=== PATIENT | female | born 1965 | race Caucasian/White ===

== ENCOUNTER 2019-12-16 07:08 | Outpatient (CLI) | payer BC, SELFPAY ==
--- NOTE | ~2019-12-16 | MM_ITS ---
EXAMINATION: MM screening [facility] BI w gillian HISTORY: Screening mammogram TECHNIQUE: Craniocaudal and mediolateral oblique 3-D tomosynthesis images were obtained and synthetic 2-D images were generated. CAD analysis was submitted and interpreted. COMPARISON: 11/25/2018, 11/20/2017, 11/25/2016, 11/17/2016 BREAST PARENCHYMAL COMPOSITION: There are scattered areas of fibroglandular density. FINDINGS: There is no evidence of suspicious mass, calcification, or architectural distortion to sugg est malignancy in either breast. There has been no suspicious interval change. IMPRESSION: 1. No mammographic evidence of malignancy. 2. Recommend routine screening mammography in one year. BI-RADS Category 1: Negative Reviewed, dictated and finalized at location A.
== END 2019-12-16 07:09 | disposition home or self-care (01) ==
LOC: ANHIMG 07:12
PROVIDERS: PCP Family Medicine; Visit Provider Obstetrics & Gynecology
DX: Z12.31 Encounter for screening mammogram for malignant neoplasm of breast (principal)
CPT/HCPCS: 77063; 77067

== ENCOUNTER 2020-12-18 07:02 | Outpatient (CLI) | payer OTHER, SELFPAY ==
--- NOTE | ~2020-12-18 | MM_ITS ---
EXAMINATION: MM screening [facility] BI w gillian HISTORY: Screening mammogram TECHNIQUE: Craniocaudal and mediolateral oblique 3-D tomosynthesis images were obtained and synthetic 2-D images were generated. CAD analysis was submitted and interpreted. COMPARISON: 12/16/2019, 11/25/2018, 11/20/2017 BREAST PARENCHYMAL COMPOSITION: There are scattered areas of fibroglandular density. FINDINGS: RIGHT BREAST: There is no evidence of suspicious mass, calcification, or architectural distortion to suggest malignancy. There has been no significant interval change. LEFT BREAST: There is an asymmetry in the middle third of inner breast 6 cm from the nipple on the cr aniocaudal view. IMPRESSION: 1. Left breast asymmetry. 2. Additional mammographic views and possible breast ultrasound are recommended. BI-RADS Category 0: Incomplete: Needs additional imaging evaluation. Reviewed, dictated and finalized at location A. IMPRESSION: 1. Left breast asymmetry. 2. Additional mammographic views and possible breast ultrasound are recommended . BI-RADS Category 0: Incomplete: Needs additional imaging evaluation.
== END 2020-12-18 07:03 | disposition home or self-care (01) ==
LOC: ANHIMG 07:07
PROVIDERS: PCP Nurse Practitioner; Visit Provider Obstetrics & Gynecology
DX: Z12.31 Encounter for screening mammogram for malignant neoplasm of breast (principal); R92.8 Other abnormal and inconclusive findings on diagnostic imaging of breast
CPT/HCPCS: 77063; 77067

== ENCOUNTER 2021-01-16 12:07 | Outpatient (CLI) | payer OTHER, SELFPAY ==
--- NOTE | ~2021-01-16 | MMUS_ITS ---
CORRECTED REPORT Procedure description corrected, gillian added. 01/17/2021 sef EXAMINATION: MM diagnostic [facility] LT w gillian, US breast LT limited HISTORY: Follow-up left breast asymmetry TECHNIQUE: Additional 3-D tomosynthesis images of the left breast were performed and synthetic 2-D images were generated. CAD analysis was submitted and interpreted. High resolution Limited left breast ultrasound was performed. COMPARISON: Comparison to multiple prior studies sequentially, with oldest reviewed study dated 11/17/2016. BREAST PARENCHYMAL COMPOSITION: Breast composed of scattered areas of fibroglandular density. FINDINGS: MAMMOGRAPHIC FINDINGS: There is a persistent focal asymmetry medial aspect of the left breast, middle third. This is not definitely seen on medial lateral or MLO views. ULTRASOUND: Limited left breast ultrasound: Normal heterogeneous echotexture. No focal mass identified. IMPRESSION: 1. Probable benign focal left breast asymmetry, middle third medial aspect of the left breast on CC view. No sonographic correlate. 2. Recommend 6 month follow-up diagnostic left mammogram. BI-RADS category 3, probably benign findings. Reviewed, dictated and finalized at location A. MTDD IMPRESSION: 1. Probable benign focal left breast asymmetry, middle third medial aspect of t he left breast on CC view. No sonographic correlate. 2. Recommend 6 month follow-up diagnostic left mammogram. BI-RADS category 3, probably benign findings.
== END 2021-01-16 12:08 | disposition home or self-care (01) ==
LOC: ANHIMG 12:09
PROVIDERS: PCP Nurse Practitioner; Visit Provider Obstetrics & Gynecology
DX: R92.8 Other abnormal and inconclusive findings on diagnostic imaging of breast (principal)
CPT/HCPCS: 76642; 77061; 77065; G0279

== ENCOUNTER → 2021-07-26 07:42 | Outpatient (CLI) | payer OTHER, SELFPAY ==
--- NOTE | ~2021-07-26 | MMUS_ITS ---
EXAMINATION: MM diagnostic [facility] LT w gillian, US breast LT limited HISTORY: Follow-up left breast mass TECHNIQUE: Additional 3-D tomosynthesis images of the left breast were performed and synthetic 2-D im ages were generated. CAD analysis was submitted and interpreted. High resolution Limited left breast ultrasound was performed. COMPARISON: Comparison to multiple prior studies sequentially, with oldest reviewed study dated 11/20. BREAST PARENCHYMAL COMPOSITION: Breast composed of scattered areas of fibroglandular density FINDINGS: MAMMOGRAPHIC FINDINGS: There is a mass in the upper inner quadrant of the left breast. No suspicious calcifications or archi tectural distortion. ULTRASOUND: Limited left breast ultrasound: At 10:00, 5 cm from the nipple there is a 3 mm cyst corresponding to the mammographic finding. No suspicious masses to suggest malignancy. IMPRESSION: 1. No evidence for malignancy in the left breast. Benign findings. 2. Routine yearly screening mammogram and regular clinical breast examination are recommended. BI-RADS Category 2: Benign finding(s). Reviewed, dictated and finalized at location A. [employer] IMPRESSION: 1. No evidence for malignancy in the left breast. Benign findings. 2. Routine yearly screening mammogram and regular clinical breast examination a re recommended. BI-RADS Category 2: Benign finding(s).
== END ==
PROVIDERS: PCP Nurse Practitioner; Visit Provider Obstetrics & Gynecology
DX: R92.8 Other abnormal and inconclusive findings on diagnostic imaging of breast (principal)
CPT/HCPCS: 76642; 77061; 77065; G0279

== ENCOUNTER 2022-02-25 11:01 | Outpatient (CLI) | payer OTHER, SELFPAY ==
[2022-02-25 12:16] LABS: Hematocrit 42.1 % (37.0-47.0); Hemoglobin 14.4 g/dL (12.0-15.0); Mean Corpuscular HGB Conc 34.2 g/dl (32-36); Mean Corpuscular Hemoglobin 31.8 pg (26-34); Mean Corpuscular Volume 92.9 fl (80-100); Mean Platelet Volume 9.8 fl (7.4-10.4); Platelet Count Result 257 k/mm3 (150-375); Red Blood Count 4.53 M/mm3 (4.2-5.4); Red Cell Distribution Width 11.7 % (11.5-14.5); White Blood Count 7.3 K/mm3 (4.5-10.0)
[2022-02-25 12:34] LABS: CRP 1.2 mg/dL (<1.0)
[2022-02-25 14:26] LABS: Erythrocyte Sedimentation Rate 12 mm/hr (0-20)
[2022-03-04 15:09] LABS: Gliadin AB, IgG <1.0; TTG IGA AB <1.0
== END 2022-02-25 11:02 | disposition home or self-care (01) ==
LOC: ANHLAB 11:03
PROVIDERS: PCP Nurse Practitioner; Visit Provider Nurse Practitioner
DX: R19.7 Diarrhea, unspecified (principal); R10.9 Unspecified abdominal pain
CPT/HCPCS: 36415; 83516; 84443; 85027; 85652; 86140; 86255

== ENCOUNTER 2022-02-28 07:43 | Outpatient (CLI) | payer OTHER, SELFPAY ==
[2022-03-08 10:01] LABS: Calprotectin, Stool 89 mcg/g
== END 2022-02-28 07:44 | disposition home or self-care (01) ==
LOC: ANHLAB 07:44
PROVIDERS: Visit Provider Nurse Practitioner
DX: R10.9 Unspecified abdominal pain (principal); R19.7 Diarrhea, unspecified
CPT/HCPCS: 83993; 87045; 87177; 87209; 87427

== ENCOUNTER → 2022-02-28 16:24 | Outpatient (CLI) | payer OTHER, SELFPAY ==
--- NOTE | ~2022-02-28 | MM_ITS ---
EXAMINATION: MM screening [facility] BI w gillian HISTORY: Screening mammogram TECHNIQUE: Craniocaudal and mediolateral oblique 3-D tomosynthesis images were obtained and synthetic 2-D images were generated. CAD analysis was submitted and interpreted. COMPARISON: July 26, 2021 diagnostic left mammogram and limited left breast ultrasound 01/16/2021 diagnostic left mammogram and limited left breast ultrasound 12/18/2020, 12/16/2019, bilateral screening mammogram examinations BREAST PARENCHYMAL COMPOSITION: There are scattered areas of fibroglandular density. FINDINGS: Stable mild fibroglandular asymmetry. Focal approximately 2.5 x 5 mm asymmetry is noted in the usual the anterior middle thirds of the inne r left breast on craniocaudal view (craniocaudal Tomosynthesis image 57/85). Diagnostic left mammogra m and left breast ultrasound examination are recommended. Otherwise there is no evidence of suspicious mass, calcification, or architectural distortion to sugg est malignancy in either breast. There has been no other suspicious interval change. IMPRESSION: 1. Asymmetric approximately 2 x 5 x 5 mm opacity in inner left breast on craniocaudal view 2. Diagnostic left mammogram and left breast ultrasound examination are recommended. BI-RADS Category 0: Incomplete: Needs additional imaging evaluation. Reviewed, dictated and finalized at location A. IMPRESSION: 1. Asymmetric approximately 2 x 5 x 5 mm opacity in inner left breast on cranio caudal view 2. Diagnostic left mammogram and left breast ultrasound examination are recomme nded. BI-RADS Category 0: Incomplete: Needs additional imaging evaluation.
== END ==
PROVIDERS: PCP Nurse Practitioner; Visit Provider Obstetrics & Gynecology
DX: Z12.31 Encounter for screening mammogram for malignant neoplasm of breast (principal); R92.8 Other abnormal and inconclusive findings on diagnostic imaging of breast
CPT/HCPCS: 77063; 77067

== ENCOUNTER → 2022-03-19 07:29 | Outpatient (CLI) | payer OTHER, SELFPAY ==
--- NOTE | ~2022-03-19 | MMUS_ITS ---
EXAMINATION: MM diagnostic [facility] LT w gillian, US breast LT limited HISTORY: Follow-up left breast asymmetry TECHNIQUE: Additional 3-D tomosynthesis images of the left breast were performed and synthetic 2-D im ages were generated. CAD analysis was submitted and interpreted. High resolution Limited left breast ultrasound was performed. COMPARISON: Comparison to multiple prior studies sequentially, with oldest reviewed study dated 11/25. BREAST PARENCHYMAL COMPOSITION: Breast composed of scattered areas of fibroglandular density FINDINGS: MAMMOGRAPHIC FINDINGS: There is a persistent focal asymmetry medial aspect of the left breast on CC view which is not defini tively seen on medial lateral or MLO views. ULTRASOUND: Limited left breast ultrasound: At 12:00, 2 cm from the nipple there is an oval hypoechoic mass with parallel orientation, no posterior features or internal vascularity measuring 3 mm. At 10:00, 5 cm fr om the nipple, there is a 3 mm minimally complicated cyst, likely corresponding to the mammographic f inding. IMPRESSION: 1. Probable benign left breast masses. 2. Recommend 6 month follow-up diagnostic left mammogram and limited ultrasound BI-RADS category 3, probably benign findings. Reviewed, dictated and finalized at location A. IMPRESSION: 1. Probable benign left breast masses. 2. Recommend 6 month follow-up diagnostic left mammogram and limited ultrasound BI-RADS category 3, probably benign findings.
== END ==
PROVIDERS: PCP Nurse Practitioner; Visit Provider Obstetrics & Gynecology
DX: R92.8 Other abnormal and inconclusive findings on diagnostic imaging of breast (principal); N63.25 Unspecified lump in the left breast, overlapping quadrants
CPT/HCPCS: 76642; 77061; 77065; G0279

== ENCOUNTER 2022-04-11 00:07 | Day surgery (SDC) | payer OTHER, SELFPAY ==
[2022-04-03 13:47] VITALS: BMI 34.4
--- NOTE | 2022-04-10 14:41 | PM.HPGS ---
History of Present Illness History of Present Illness Consent: Risks, benefits, and alternatives have been discussed and questions answered. Patient agrees to proceed with procedure. Chief complaint: abdominal pain, diarrhea; abnormal celiac panel Narrative: Lauren Simmons is a 56 year old female referred for investigation of abdominal pain and diarrhea. Her diarrhea is chronic. She had a cholecystectomy few years ago. She had try taking Questran but it caused bloating and she therefore stopped taking it after 3 days.. She has had testing for celiac disease and a trial of Xifaxan. The celiac test were all negative except for a slight elevation of tTG IgG (6, normal 5 or less) Review of Systems Review of Systems: All systems reviewed & are unremarkable except as noted in HPI and below PMFSH Surgical History Surgical History H/O sinus surgery History of cholecystectomy 2018 Dr. 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 Spiritual care concerns: No Meds Home Medications and Allergies Home Medications Medication Instructions Recorded Confirmed Type acetaminophen 325 mg capsule 325 mg PO Q6H PRN Pain 01/30/22 04/03/22 History (Tylenol) cetirizine 10 mg capsule (Zyrtec) 10 mg PO DAILY PRN Allergy Symptoms 01/30/22 04/03/22 History fluticasone propionate 50 1 spray intranasal DAILY 01/30/22 04/03/22 History mcg/actuation nasal spray,suspension guaifenesin 600 mg tablet, 600 mg PO Q12H PRN Allergy Symptoms 01/30/22 04/03/22 History extended release 12 hr (Mucinex) multivitamin 1 tablet PO DAILY 01/30/22 04/03/22 History phenylephrine HCl 10 mg tablet 10 mg PO Q4-6H PRN Allergy Symptoms 01/30/22 04/03/22 History (Sudafed PE) montelukast 10 mg tablet 10 mg PO DAILY 02/17/22 04/03/22 History alprazolam 0.5 mg tablet 0.5 mg PO QHS PRN Anxiety 02/24/22 04/03/22 History hyoscyamine sulfate 0.125 mg 0.125 mg PO .every 6 hours PRN 02/24/22 04/03/22 Rx tablet (Levsin) abdominal pain #120 tabs rifaximin 550 mg tablet (Xifaxan) 550 mg PO TID 14 days #42 tabs 02/24/22 04/03/22 Rx Allergies Allergy/AdvReac Type Severity Reaction Status Date / Time tetrahydrozoline Allergy Severe EYE Verified 04/11/22 06:24 SWELLING amoxicillin Allergy Unknown Rash Verified 04/11/22 06:24 Sulfa (Sulfonamide Allergy Unknown achy Verified 04/11/22 06:24 Antibiotics) FLU VACCINE AdvReac Severe BLOOD SHOT Uncoded 04/11/22 06:24 EYES Exam Const: General: alert Orientation/consciousness: patient oriented x3 Resp: Auscultation: clear to auscultation bilaterally Cardio: Rhythm: regular rhythm GI: GI Palp: Yes Soft to palpation and No Tenderness to palpation present (GI) Neuro: General: patient oriented x3 Assessment and Plan Assessment and plan (1) Abdominal pain: Code(s): R10.9 - Unspecified abdominal pain Status: Acute Assessment and Plan: EGD with possible biopsy or dilatation or cautery. (2) Diarrhea: Code(s): R19.7 - Diarrhea, unspecified Status: Acute Assessment and Plan: Colonoscopy with possible biopsy or polypectomy or cautery or injection of substances.
[2022-04-11 06:30] VITALS: BP 133/68; PULSE 91; RESP 18; TEMP 36.2; O2SAT 97
[2022-04-11] MEDS: LACTATED RINGERS 1,000 ML 150 ML IV CONT (06:40)
--- NOTE | 2022-04-11 07:09 | WPDANESEPPF ---
Anes - Initial Pre Proc Eval Procedure: Operation Date: 04/11/22 07:15 Proposed Procedures p Esophagogastroduodenoscopy & Colonoscopy - Mg Malagon MD Date/Time: 04/11/22 07:09 Surgeon: Mg Malagon MD Pre Op Diagnosis: abdominal pain, diarrhea; abnormal celiac panel Patient Data Age: 56 Gender: F Height: 1.68 m Weight: 93.9 kg Last Vital Signs Temp 97.1 F L 04/11/22 06:30 Pulse 91 04/11/22 06:30 Resp 18 04/11/22 06:30 BP 133/68 04/11/22 06:30 Pulse Ox 97 04/11/22 06:30 O2 Del Method Room Air 04/11/22 06:30 Allergies Allergy/AdvReac Type Severity Reaction Status Date / Time tetrahydrozoline Allergy Severe EYE Verified 04/11/22 06:24 SWELLING amoxicillin Allergy Unknown Rash Verified 04/11/22 06:24 Sulfa (Sulfonamide Allergy Unknown achy Verified 04/11/22 06:24 Antibiotics) FLU VACCINE AdvReac Severe BLOOD SHOT Uncoded 04/11/22 06:24 EYES Home Medications Medication Instructions Recorded Confirmed Type acetaminophen 325 mg capsule 325 mg PO Q6H PRN Pain 01/30/22 04/03/22 History (Tylenol) cetirizine 10 mg capsule (Zyrtec) 10 mg PO DAILY PRN Allergy Symptoms 01/30/22 04/03/22 History fluticasone propionate 50 1 spray intranasal DAILY 01/30/22 04/03/22 History mcg/actuation nasal spray,suspension guaifenesin 600 mg tablet, 600 mg PO Q12H PRN Allergy Symptoms 01/30/22 04/03/22 History extended release 12 hr (Mucinex) multivitamin 1 tablet PO DAILY 01/30/22 04/03/22 History phenylephrine HCl 10 mg tablet 10 mg PO Q4-6H PRN Allergy Symptoms 01/30/22 04/03/22 History (Sudafed PE) montelukast 10 mg tablet 10 mg PO DAILY 02/17/22 04/03/22 History alprazolam 0.5 mg tablet 0.5 mg PO QHS PRN Anxiety 02/24/22 04/03/22 History hyoscyamine sulfate 0.125 mg 0.125 mg PO .every 6 hours PRN 02/24/22 04/03/22 Rx tablet (Levsin) abdominal pain #120 tabs rifaximin 550 mg tablet (Xifaxan) 550 mg PO TID 14 days #42 tabs 02/24/22 04/03/22 Rx Patient hx anesthesia problems: none Family hx anesthesia problems: none Results Review: All pre-operative results and documents have been reviewed as part of the pre-operative evaluation. [facility] Surgical History Surgical History H/O sinus surgery History of cholecystectomy 2018 Dr. 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 Informed Consent: The patient's anesthetic plan and its attendant risks and benefits were discussed with the patient/family/POA. Questions were solicited and answers provided to the satisfaction of the patient/family/POA.
--- NOTE | 2022-04-11 07:34 | SUR.OPER ---
EGD end 727 COLONOSCOPY start 733
[2022-04-11 07:50] VITALS: BP 129/75; PULSE 73; RESP 23; O2SAT 100
[2022-04-11 08:00] VITALS: BP 131/74; PULSE 74; RESP 25; O2SAT 100
[2022-04-11 08:10] VITALS: BP 136/81; PULSE 71; RESP 19; O2SAT 100
== END 2022-04-11 08:12 | disposition home or self-care (01) ==
PROVIDERS: PCP Family Medicine Sports Medicine; Visit Provider Internal Medicine Gastroenterology
PROC: 0DJ08ZZ Inspection of Upper Intestinal Tract, Via Natural or Artificial Opening Endoscopic (ICD-10-PCS; CPT 43235; principal; 2022-04-11 07:15)
DX: R19.7 Diarrhea, unspecified (principal); K64.8 Other hemorrhoids; K63.5 Polyp of colon; K21.9 Gastro-esophageal reflux disease without esophagitis; K29.70 Gastritis, unspecified, without bleeding; E66.9 Obesity, unspecified; Z68.33 Body mass index [BMI] 33.0-33.9, adult
CPT/HCPCS: 45380; 43239; 87081; 88305; J2001; J2704; J7120

== ENCOUNTER → 2022-10-21 07:46 | Outpatient (CLI) | payer OTHER, SELFPAY ==
--- NOTE | ~2022-10-21 | MMUS_ITS ---
EXAMINATION: MM diagnostic [facility] BI w gillian, US breast LT limited HISTORY: Six-month follow-up for probably benign left breast mass TECHNIQUE: Craniocaudal, mediolateral, and mediolateral oblique 3-D tomosynthesis images of the breas ts were performed and synthetic 2-D images were generated. CAD analysis was submitted and interpreted . High resolution limited left breast ultrasound was performed. COMPARISON: 03/19/2022, 02/28/2022, 07/26/2021, 01/16/2021, 12/18/2020 BREAST PARENCHYMAL COMPOSITION: There are scattered areas of fibroglandular density. FINDINGS: MAMMOGRAPHIC FINDINGS: Left breast: There is a stable 6 mm circumscribed, equal density mass in the middle third of the uppe r inner quadrant of the breasts at the 10:00 location 6 cm from the nipple. Right breast: No suspicious mass, calcification, or architectural distortion are identified to sugges t malignancy. There has been no suspicious interval change. ULTRASOUND: There is a stable 3 mm cyst at the 10:00 location, 5 cm from the nipple in the left breast. A 5 mm x 2 mm oval, circumscribed, parallel, hypoechoic mass with no posterior features or internal vascularit y is seen at the 12:00 location, 2 cm from the nipple, minimally changed since the comparison examina tion. IMPRESSION: 1. Essentially two years of interval stability of the mass in the upper inner quadrant of the left br east, most consistent with a benign finding. A persistent small small sonographically detected mass a t the 12:00 location of the left breast is not significantly changed. 2. Recommend 6 month follow-up targeted left breast ultrasound for the small mass at the 12:00 locati on. BI-RADS category 3, probably benign findings. Reviewed, dictated and finalized at location A. IMPRESSION: 1. Essentially two years of interval stability of the mass in the upper inner q uadrant of the left breast, most consistent with a benign finding. A persistent small small sonographically detected mass at the 12:00 location of the left br east is not significantly changed. 2. Recommend 6 month follow-up targeted left breast ultrasound for the small ma ss at the 12:00 location. BI-RADS category 3, probably benign findings.
== END ==
PROVIDERS: PCP Family Medicine Sports Medicine; Visit Provider Obstetrics & Gynecology
DX: R92.8 Other abnormal and inconclusive findings on diagnostic imaging of breast (principal)
CPT/HCPCS: 76642; 77062; 77066; G0279

== ENCOUNTER → 2023-06-24 16:17 | Outpatient (CLI) | payer OTHER, SELFPAY ==
--- NOTE | ~2023-06-24 | US_ITS ---
US breast LT limited 06/24/2023 16:27 Indication: Six-month follow-up left breast masses Procedure: High-resolution Limited ultrasound of the left breast Comparison: Comparison to multiple prior studies sequentially, with oldest reviewed study dated 07/26. Findings: At 12:00, 2 cm from the to the nipple there are 2 adjacent cysts, largest measuring 3 mm. N o suspicious masses to suggest malignancy. Impression: 1: No sonographic evidence for malignancy. Routine yearly screening mammogram and regular clinical breast examination are recommended. BI-RADS CATEGORY 2 - BENIGN FINDINGS Reviewed, dictated and finalized at location A. LASTER Impression: 1: No sonographic evidence for malignancy. Routine yearly screening mammogram and regular clinical breast examination are recommended. BI-RADS CATEGORY 2 - BENIGN FINDINGS
== END ==
PROVIDERS: PCP Obstetrics & Gynecology; Visit Provider Obstetrics & Gynecology
DX: R92.8 Other abnormal and inconclusive findings on diagnostic imaging of breast (principal)
CPT/HCPCS: 76642

== ENCOUNTER 2024-02-27 09:14 | Outpatient (CLI) | payer OTHER, SELFPAY ==
--- NOTE | ~2024-02-27 | MM_ITS ---
EXAMINATION: MM screening [facility] BI w gillian HISTORY: Screening TECHNIQUE: Craniocaudal and mediolateral oblique 3-D tomosynthesis images were obtained and synthetic 2-D images were generated. CAD analysis was submitted and interpreted. COMPARISON: Comparison to multiple prior studies sequentially, with oldest reviewed study dated 12/18. BREAST PARENCHYMAL COMPOSITION: Not dense: There are scattered areas of fibroglandular density. FINDINGS: There is no evidence of suspicious mass, calcification, or architectural distortion to sugg est malignancy in either breast. There has been no suspicious interval change. IMPRESSION: 1. No mammographic evidence of malignancy. 2. Recommend routine screening mammography in one year. BI-RADS Category 1: Negative Reviewed, dictated and finalized at location B.
== END 2024-02-27 09:15 | disposition home or self-care (01) ==
LOC: ANHIMG 09:15
PROVIDERS: PCP Family Medicine Sports Medicine; Visit Provider Obstetrics & Gynecology
DX: Z12.31 Encounter for screening mammogram for malignant neoplasm of breast (principal)
CPT/HCPCS: 77063; 77067

== ENCOUNTER 2025-03-14 07:12 | Outpatient (CLI) | payer OTHER, SELFPAY ==
--- NOTE | ~2025-03-14 | MM_ITS ---
EXAMINATION: MM screening [facility] BI w gillian HISTORY: Screening TECHNIQUE: Craniocaudal and mediolateral oblique 3-D tomosynthesis images were obtained and synthetic 2-D images were generated. CAD analysis was submitted and interpreted. COMPARISON: Comparison to multiple prior studies sequentially, with oldest reviewed study dated , 12/16/2019 BREAST PARENCHYMAL COMPOSITION: There are scattered areas of fibroglandular density. FINDINGS: There is no evidence of suspicious mass, calcification, or architectural distortion to suggest malignancy in either breast. IMPRESSION: 1. No mammographic evidence of malignancy. 2. Recommend routine screening mammography in one year. BI-RADS Category 1: Negative Reviewed, dictated and finalized at location B.
== END 2025-03-14 07:13 | disposition home or self-care (01) ==
PROVIDERS: Visit Provider Obstetrics & Gynecology
DX: Z12.31 Encounter for screening mammogram for malignant neoplasm of breast (principal)
CPT/HCPCS: 77063; 77067